=== PATIENT | female | born 1980 | race Hispanic/Latino ===

== ENCOUNTER 2022-11-30 12:06 | Emergency (ER) | payer SELFPAY ==
[2022-11-30] MEDS ORDERED: DIAZEPAM 2 MG TABLET ONE (13:20)
--- NOTE | 2022-11-30 14:52 | RAD REPORT ---
EXAM DESCRIPTION: Augustina Single View11/30/2022 2:10 pm CLINICAL HISTORY: Palpitations COMPARISON: none FINDINGS: The lungs appear clear of acute infiltrate. The heart is normal size IMPRESSION: No acute abnormalities displayed
[2022-11-30 14:57] LABS: Absolute Lymphocytes (CBC) 2.1 K/uL (0.7-4.9); Hematocrit 43.2 % (36.0-45.0); MCV 89.7 fL (80-100); MPV 8.2 fL (7.6-11.3); RBC Red Blood Cell Count 4.82 M/uL (3.86-4.86)
[2022-11-30] MEDS ORDERED: ACETAMINOPHEN 500 MG TAB ONE (14:57)
[2022-11-30 15:09] LABS: BUN Blood Urea Nitrogen 9 mg/dL (7-18); Bicarbonate 26 mEq/L (21-32); Glomerular Filtration Rate 107 ml/min (=/>90); Glucose Level 100 mg/dL (74-106); Potassium 3.7 mEq/L (3.5-5.1); Sodium Level 136 mEq/L (136-145)
[2022-11-30 15:19] LABS: Troponin High Sensitivity < 3.0 pg/mL (<58.9)
--- NOTE | 2022-11-30 15:54 | ER ---
Nurse's Notes [facility] Name: Ema Graves Age: 42 yrs Sex: Female : 1980 Arrival Date: 11/30/2022 Time: 12:06 Bed 8 Private MD: Diagnosis: Palpitations Presentation: 11/30 12:33 Chief complaint: Patient states: anxiety, stress, neck pain, burning in chest and iw palpitations, there are moments when it's calm and then it starts again . yesterday morning everything started , she took some medicine from [place] for 3 days (ketoprofeno and sertraline) and that's when the symptoms started. Coronavirus screen: At this time, the client does not indicate any symptoms associated with coronavirus-19. Ebola Screen: Patient negative for fever greater than or equal to 101.5 degrees Fahrenheit, and additional compatible Ebola Virus Disease symptoms Patient denies exposure to infectious person. Patient denies travel to an Ebola-affected area in the 21 days before illness onset. No symptoms or risks identified at this time. 12:33 Method Of Arrival: Ambulatory iw 12:50 Risk Assessment: Do you want to hurt yourself or someone else? Patient reports no iw desire to harm self or others. 12:50 Acuity: PAUL 3 iw 12:56 Initial Sepsis Screen: Does the patient meet any 2 criteria? No. Patient's initial iw sepsis screen is negative. Does the patient have a suspected source of infection? No. Patient's initial sepsis screen is negative. 14:00 Onset of symptoms was November 30, 2022. db Triage Assessment: 14:51 General: Appears. db Historical: - Allergies: 12:56 metformin; iw 12:56 Ibuprofen; iw - Immunization history:: Adult Immunizations unknown. - Social history:: Smoking status: Patient denies any tobacco usage or history of. Screenin:[facility] ED Fall Risk Assessment (Adult) History of falling in the last 3 months, db including since admission No falls in past 3 months (0 pts) Confusion or Disorientation No (0 pts) Intoxicated or Sedated No (0 pts) Impaired Gait No (0 pts) Mobility Assist Device Used No (0 pt) Altered Elimination No (0 pt) Score/Fall Risk Level 0 - 2 = Low Risk Oriented to surroundings, Maintained a safe environment. Abuse screen: Denies threats or abuse. Denies injuries from another. Nutritional screening: No deficits noted. Tuberculosis screening: No symptoms or risk factors identified. Assessment: 13:15 Reassessment: Patient appears in no apparent distress at this time. Patient and/or db family updated on plan of care and expected duration. Pain level reassessed. Patient is alert, oriented x 3, equal unlabored respirations, skin warm/dry/pink. NECK PAIN AND STIFFNESS FELT ANXIOUS YESTERDAY. General: Appears in no apparent distress. comfortable, Behavior is calm, cooperative. Pain: Complains of pain in chest. Neuro: Level of Consciousness is awake, alert, obeys commands, Oriented to person, place, time, situation. Cardiovascular: Reports None. 14:51 Reassessment: Patient appears in no apparent distress at this time. Patient and/or db family updated on plan of care and expected duration. Pain level reassessed. Patient is alert, oriented x 3, equal unlabored respirations, skin warm/dry/pink. Reassessment: Patient states feeling better. General: Appears in no apparent distress. comfortable. :. 16:00 Reassessment: Patient appears in no apparent distress at this time. Patient and/or db family updated on plan of care and expected duration. Pain level reassessed. Patient is alert, oriented x 3, equal unlabored respirations, skin warm/dry/pink. Patient states feeling better. Patient states symptoms have improved. Vital Signs: 12:33 BP 115 / 77; Pulse 78; Resp 16; Temp 98.2; Pulse Ox 97% on R/A; iw 13:13 BP 135 / 80; Pulse 78; Resp 16; Pulse Ox 96% on R/A; db 14:30 BP 130 / 81; Pulse 72; Resp 18; Pulse Ox 96% on R/A; db 15:00 BP 133 / 92; Pulse 69; Resp 16; Pulse Ox 100% on R/A; db 16:00 BP 118 / 73; Pulse 72; Resp 16; Pulse Ox 98% on R/A; db ED Course: 12:09 Patient arrived in ED. im 12:34 Lucie Lakhani FNP-C is PHCP. kb 12:34 Camilo Montejo MD is Attending Physician. kb 12:50 Triage completed. iw 12:56 Arm band placed on. iw 13:01 Bernal, Cece, RN is Primary Nurse. db 13:17 EKG done, by ED staff, reviewed by Lucie ARANDA. db 14:12 XRAY Chest (1 view) In Process Unspecified. EDMS 14:52 Patient has correct armband on for positive identification. Bed in low position. Call db light in reach. Side rails up X 1. Pulse ox on. NIBP on. 16:20 Provided Education on: DISCHARGE. db 16:20 No provider procedures requiring assistance completed. IV discontinued, intact, db bleeding controlled, No redness/swelling at site. Administered Medications: 12:48 CANCELLED (Physician Discretion): LORazepam PO 1 mg PO once iw 13:15 Drug: Diazepam PO 2 mg Route: PO; db 14:47 Follow up: Response: No adverse reaction db 14:47 Drug: Acetaminophen PO 1000 mg Route: PO; db 16:21 Follow up: Response: No adverse reaction db Medication: 16:20 VIS not applicable for this client. db Outcome: 15:53 Discharge ordered by MD. kb 16:20 Discharged to home ambulatory, with family. db 16:20 Condition: stable 16:20 Discharge instructions given to patient, family, Instructed on discharge instructions, follow up and referral plans. 16:21 Patient left the ED. db Signatures: Dispatcher [employer] DAYANARAWA Lucie Lakhani FNP-C FNP-Velma Zendejas, RN RN iw Ccee Bernal, RN RN db Fabiola Hannah Corrections: (The following items were deleted from the chart) 12:56 12:56 Allergies: Morphine; iw iw 12:57 12:33 Chief complaint: Patient states: anxiety, stress, neck pain, burning in chest and iw palpitations, there are moments when it's calm and then it starts again . yesterday morning everything started , she took some medicine from [place] for 3 days (ketoprofeno and sertraline) and that's when the symptoms started iw
--- NOTE | 2022-11-30 15:54 | EDPHYS ---
Physician Documentation [facility] Name: Ema Graves Age: 42 yrs Sex: Female : 1980 Arrival Date: 11/30/2022 Time: 12:06 Bed 8 Private MD: ED Physician Camilo Montejo HPI: 11/30 19:54 This 42 yrs old Female presents to ER via Ambulatory with complaints of kb Anxiety, Neck and Upper Back Pain, Arm Pain, Palpitations, Headache. 19:54 The patient presents to the emergency department with anxiety, depression. Onset: The kb symptoms/episode began/occurred 1 week(s) ago. Associated signs and symptoms: Pertinent positives; anxiety, depression. Severity of symptoms: At their worst the symptoms were moderate in the emergency department the symptoms are unchanged. The patient has not experienced similar symptoms in the past. The patient has been recently seen by a physician:. Patient reports anxiety and depression that started 1 week ago. States she started taking sertraline from [place] 3 to 4 days ago and anxiety is gotten worse. Reports palpitations and describes it as nervousness. Patient reports headache and neck pain that have been going on for 1 month. States she had an MRI 2 weeks ago and was told she needed to follow-up with a neurosurgeon. Neurosurgeon appointment is December 12 and she states that is what is causing her anxiety. Denies any change in headache or neck pain over the last month.. Historical: - Allergies: 12:56 metformin; iw 12:56 Ibuprofen; iw - Immunization history:: Adult Immunizations unknown. - Social history:: Smoking status: Patient denies any tobacco usage or history of. ROS: 19:53 Constitutional: Negative for fever, chills, and weight loss. kb 19:53 Neck: Positive for pain with movement, pain at rest. 19:53 Neuro: Positive for headache. 19:53 Psych: Positive for anxiety, depression. 19:53 All other systems are negative. 19:54 Cardiovascular: Positive for palpitations. kb Exam: 19:54 Constitutional: This is a well developed, well nourished patient who is awake, alert, kb and in no acute distress. Head/Face: Normocephalic, atraumatic. ENT: Moist Mucous membranes Neck: Trachea midline, no thyromegaly or masses palpated, and no cervical lymphadenopathy. Supple, full range of motion without nuchal rigidity, or vertebral point tenderness. No Meningismus. Cardiovascular: Regular rate and rhythm with a normal S1 and S2. No gallops, murmurs, or rubs. No pulse deficits. Respiratory: Respirations even and unlabored. No increased work of breathing. Talking in full sentences Abdomen/GI: Soft, non-tender. No distention Skin: Warm, dry with normal turgor. Normal color. MS/ Extremity: Pulses equal, no cyanosis. Neurovascular intact. Full, normal range of motion. Neuro: Awake and alert, GCS 15, oriented to person, place, time, and situation. Moves all extremities. Normal gait. Vital Signs: 12:33 BP 115 / 77; Pulse 78; Resp 16; Temp 98.2; Pulse Ox 97% on R/A; iw 13:13 BP 135 / 80; Pulse 78; Resp 16; Pulse Ox 96% on R/A; db 14:30 BP 130 / 81; Pulse 72; Resp 18; Pulse Ox 96% on R/A; db 15:00 BP 133 / 92; Pulse 69; Resp 16; Pulse Ox 100% on R/A; db 16:00 BP 118 / 73; Pulse 72; Resp 16; Pulse Ox 98% on R/A; db MDM: 12:34 Patient medically screened. kb 19:54 Data reviewed: vital signs, nurses notes. kb 19:56 Differential diagnosis: Anxiety, depression, palpitations, arrhythmia, abnormal EKG, kb electrolyte imbalance. Counseling: I had a detailed discussion with the patient and/or guardian regarding: the historical points, exam findings, and any diagnostic results supporting the discharge/admit diagnosis, lab results, radiology results, the need for outpatient follow up, a family practitioner, to return to the emergency department if symptoms worsen or persist or if there are any questions or concerns that arise at home. 11/30 14:03 Order name: Basic Metabolic Panel; Complete Time: 15:36 kb 11/30 14:03 Order name: CBC with Diff; Complete Time: 15:00 kb 11/30 14:03 Order name: Troponin HS; Complete Time: 15:36 kb 11/30 14:03 Order name: XRAY Chest (1 view); Complete Time: 14:58 kb 11/30 12:45 Order name: EKG; Complete Time: 12:46 iw 11/30 12:45 Order name: EKG - Nurse/Tech; Complete Time: 13:21 iw Administered Medications: 12:48 CANCELLED (Physician Discretion): LORazepam PO 1 mg PO once iw 13:15 Drug: Diazepam PO 2 mg Route: PO; db 14:47 Follow up: Response: No adverse reaction db 14:47 Drug: Acetaminophen PO 1000 mg Route: PO; db 16:21 Follow up: Response: No adverse reaction db Disposition Summary: 11/30/22 15:53 Discharge Ordered Location: Home kb Condition: Stable kb Diagnosis - Palpitations kb Followup: kb - With: Emergency Department - When: As needed - Reason: Worsening of condition Followup: kb - With: Private Physician - When: 2 - 3 days - Reason: Recheck today's complaints, Continuance of care, Re-evaluation by your physician Discharge Instructions: - Discharge Summary Sheet kb - Panic Attack, [id number] kb - Palpitations, [id number] kb Forms: - Medication Reconciliation Form kb - Thank You Letter kb - Antibiotic Education kb - Prescription Opioid Use kb - Patient Portal Instructions kb - Work release form eb Signatures: Dispatcher [employer] EDMS Lucie Lakhani, RANCH HAND SUPERVISOR-C RANCH HAND SUPERVISOR-Ckb Velma Valle, RN RN iw Cece Bernal, RN RN db Corrections: (The following items were deleted from the chart) 12:48 12:45 LORazepam PO 1 mg PO once ordered. iw iw 12:56 12:56 Allergies: Morphine; iw iw
[2022-11-30 16:36] VITALS: TEMP 98.2
[2022-11-30 16:41] VITALS: BP 118/73; O2SAT 98
== END 2022-11-30 16:21 | disposition home or self-care (01) ==
LOC: ER 12:06
DX: R00.2 Palpitations (principal)
CPT/HCPCS: 36415; 71045; 80048; 84484; 85025; 93005; 99284